=== PATIENT | male | born 1980 | race Caucasian/White ===

== ENCOUNTER 2025-01-14 16:35 | Inpatient (IN) | payer MEDICARE ==
[~2025-01-14] VITALS: Ht 182.9 cm; Wt 108.4 kg
[~2025-01-14 16:35] MED LIST: DIVA-153 PO; MELA5TAB40 PO; OLAN5TAB94 PO; RISP-31 PO; RISP-32 PO; TRAZ-257 PO
[2025-01-14] MEDS: LORazepam 2 MG/ML VIAL IM ONE (18:48)
[2025-01-14] MEDS: ACETAMINOPHEN 500 MG TABLET PO ONE (18:49)
[2025-01-14 19:10] LABS: PLATELET COUNT (AUTO) 158 K/uL (150-450); RED BLOOD CELL COUNT(AUTO) 4.85 MIL/uL (4.50-5.90); RED CELL DISTRIBUTION WIDTH 12.5 % (11.5-14.5); WHITE BLOOD COUNT (AUTO) 7.3 K/uL (4.5-11.0)
[2025-01-14 19:13] LABS: COVID AG,FIA SOURCE NASAL SWAB
[2025-01-14 19:18] LABS: PH,URINE DRUG SCREEN 6.0 (5.0-8.0)
[2025-01-14 19:20] LABS: CALCIUM, TOTAL 8.4 mg/dL (8.8-10.5); CREATININE 1.13 mg/dL (0.60-1.30); GLOMERULAR FILTR. RATE CALC > 60 mL/min (>60); GLUCOSE,RANDOM 118 mg/dL (70-110); SODIUM SERUM 142 mmol/L (136-145); UREA NITROGEN, BLOOD 16 mg/dL (7-18)
[2025-01-14 19:21] LABS: APPEARANCE,URINE CLEAR (CLEAR); GLUCOSE, URINE (UA) NEGATIVE (NEGATIVE); LEUKOCYTE ESTERASE ,URINE NEGATIVE (NEGATIVE); NITRATE,URINE NEGATIVE (NEGATIVE); OCCULT BLOOD,URINE NEGATIVE (NEGATIVE); SPECIFIC GRAVITIY, URINE 1.033 (1.003-1.030)
[2025-01-14 19:25] LABS: ALCOHOL, URINE DRUG SCREEN NEGATIVE (NEGATIVE); AMPHET/METH SCREEN,URINE NEGATIVE (NEGATIVE); BARBITURATE SCREEN, URINE NEGATIVE (NEGATIVE); CANNABINOID SCREEN,URINE NEGATIVE (NEGATIVE); COCAINE SCREEN,URINE NEGATIVE (NEGATIVE); METHADONE SCREEN, URINE NEGATIVE (NEGATIVE)
[2025-01-14 19:28] LABS: ASPARTATE AMINOTRANSFERASE 25 U/L (15-37); TOTAL PROTEIN, SERUM 6.6 g/dL (6.4-8.2)
[2025-01-14 20:07] LABS: SARS-COV2 (COVID) ANTIGEN,FIA Negative (Negative)
[2025-01-14] MEDS ORDERED: MAG HYDROX/ALUMINUM HYD/SIMETH ES 30 ML SUSPENSION UDCUP PO PRN (22:45)
[2025-01-14] MEDS ORDERED: OLANZapine 5 MG RAPDIS TABLET PO PRN (22:45)
[2025-01-14] MEDS ORDERED: LOPERAMIDE HCL 2 MG CAPSULE PO PRN (22:45)
[2025-01-14] MEDS ORDERED: MAGNESIUM HYDROXIDE SUSPENSION 30 ML UDCUP PO PRN (22:45)
[2025-01-14] MEDS ORDERED: GuaiFENesin/D-METHORPHAN [SUGAR-FREE] 200-20MG/10 ML SYRUP UDCUP PO PRN (22:45)
[2025-01-14] MEDS ORDERED: PROMETHAZINE HCL 25 MG TABLET PO PRN (22:45)
[2025-01-14 23:27] VITALS: O2SAT 97
[2025-01-15 00:35] LABS: GLUCOMETER DEV NAME(LOC) BV2X.3; GLUCOSE,POINT OF CARE 119 MG/DL (70-110)
[2025-01-15 02:46] VITALS: BP 112/74; PULSE 62; RESP 18; TEMP 97.9; O2SAT 98
[2025-01-15] MEDS: FOLIC ACID 1 MG TABLET PO SCH (08:37)
[2025-01-15] MEDS: MULTIVITAMINS WITH MINERALS, THERAPEUTIC TABLET PO SCH (08:37)
[2025-01-15] MEDS: THIAMINE 100 MG TABLET PO SCH (08:37)
[2025-01-15] MEDS ORDERED: PALIPERIDONE PALMITATE 234 MG/1.5 ML SYRINGE IM ONE (09:00)
[2025-01-15 12:59] VITALS: BP 119/61; PULSE 64; RESP 19; TEMP 98.3; O2SAT 98
[2025-01-15] MEDS ORDERED: OLANZapine 5 MG RAPDIS TABLET PO PRN (13:30)
[2025-01-15] MEDS: MELATONIN 5 MG TABLET PO SCH (20:42)
[2025-01-15 20:48] VITALS: BP 138/85; PULSE 62; RESP 18; TEMP 97.9; O2SAT 99
[2025-01-15] MEDS: OLANZapine 5 MG RAPDIS TABLET PO SCH (20:49)
[2025-01-15] MEDS ORDERED: DIVALPROEX SODIUM 500 MG ER TABLET PO SCH (21:00)
[2025-01-16 08:46] VITALS: BP 106/66; PULSE 83; RESP 17; TEMP 97.9; O2SAT 97
[2025-01-16] MEDS: NYSTATIN 30 GM CREAM TP SCH (17:00)
[2025-01-16 20:19] VITALS: BP 120/72; PULSE 73; RESP 18; TEMP 98.1; O2SAT 95
[2025-01-17] MEDS: ACETAMINOPHEN 325 MG TABLET PO PRN (03:43)
[2025-01-17 04:19] VITALS: RESP 18
[2025-01-17 09:14] VITALS: BP 145/101; PULSE 76; RESP 18; TEMP 98; O2SAT 97
[2025-01-17 20:07] VITALS: BP 167/88; PULSE 68; RESP 18; TEMP 98.1; O2SAT 97
[2025-01-18] MEDS: ZOLPIDEM TARTRATE 10 MG TABLET PO PRN (01:08)
[2025-01-18 08:48] VITALS: BP 142/90; PULSE 75; RESP 19; TEMP 97.7; O2SAT 100
[2025-01-18 20:05] VITALS: BP 131/86; PULSE 79; RESP 19; TEMP 98.1; O2SAT 99
[2025-01-19 08:19] VITALS: BP 138/94; PULSE 60; RESP 16; TEMP 98.4; O2SAT 100
[2025-01-19] MEDS ORDERED: PALIPERIDONE PALMITATE 156 MG/ML SYRINGE IM ONE (09:00)
[2025-01-19 20:11] VITALS: BP 142/72; PULSE 64; RESP 17; TEMP 98.3; O2SAT 99
[2025-01-20 08:15] VITALS: BP 129/77; PULSE 63; RESP 17; TEMP 97.3; O2SAT 98
[2025-01-20 20:10] VITALS: BP 132/52; PULSE 73; RESP 17; TEMP 98.2; O2SAT 99
[2025-01-21 08:16] VITALS: BP 125/66; PULSE 63; RESP 17; TEMP 97.2; O2SAT 100
[2025-01-21 23:41] VITALS: BP 122/71; PULSE 61; RESP 18; TEMP 97.4; O2SAT 98
[2025-01-22 08:56] VITALS: BP 141/83; PULSE 62; RESP 18; TEMP 98.3; O2SAT 95
[2025-01-22] MEDS: INFLUENZA VIRUS VACCINE TVS (6MO+) 2025-26/PF 45 MCG/0.5 ML SYRINGE IM. ONE (19:42)
[2025-01-22 20:13] VITALS: BP 141/79; PULSE 64; RESP 18; TEMP 98.1; O2SAT 99
[2025-01-23 08:53] VITALS: BP 143/92; PULSE 61; RESP 18; TEMP 98.7; O2SAT 96
== END 2025-01-23 13:40 | DRG 885 ==
LOC: EMS 16:35 → B2X 23:00
PROVIDERS: ADMIT Psychiatry & Neurology Psychiatry; ATTEND Psychiatry & Neurology Psychiatry
PROC: GZHZZZZ Group Psychotherapy (ICD-10-PCS; principal; 2025-01-15)
PROC: GZ51ZZZ Individual Psychotherapy, Behavioral (ICD-10-PCS; 2025-01-15)
PROC: GZ56ZZZ Individual Psychotherapy, Supportive (ICD-10-PCS; 2025-01-15)
PROC: GZ58ZZZ Individual Psychotherapy, Cognitive-Behavioral (ICD-10-PCS; 2025-01-15)
DX: F20.0 Paranoid schizophrenia (principal); J44.89 Other specified chronic obstructive pulmonary disease; Z59.00 Homelessness unspecified; E11.9 Type 2 diabetes mellitus without complications; E66.9 Obesity, unspecified; I10 Essential (primary) hypertension; Z20.822 Contact with and (suspected) exposure to COVID-19; F41.9 Anxiety disorder, unspecified; F15.90 Other stimulant use, unspecified, uncomplicated; F17.200 Nicotine dependence, unspecified, uncomplicated; Z91.148 Patient's other noncompliance with medication regimen for other reason; Z68.32 Body mass index [BMI] 32.0-32.9, adult
CPT/HCPCS: 80048; 80076; 80307; 81003; 82962; 85025; 96372; 99285; G0480; G0481; J1200; J1630; J2060